=== PATIENT | male | born 2005 | race Caucasian/White ===

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

== ENCOUNTER 2025-03-13 01:18 | Emergency (ER) | payer OTHER, SELFPAY ==
--- OUTSIDE RECORDS SUMMARY | 2025-03-13 01:20 | XMS_ITS | Clinical Summary ---
Author Organization [facility] Address [address] [place] [address], [facility] [address] [place] [address] Phone Care Team Providers Care Carton Filling Machine Operator Name Role Phone Pcp, No Primary Care Provider Unavailabl e Allergies No known active allergies Medications escitalopram (Lexapro) 20 MG tablet Take 20 mg by mouth 1 (one) time each day. 10/08/2022 Active Active Problems No known active problems Social History Tobacco Use Types Packs/Day Years Used Date Smoking Tobacco: Never Smokeless Tobacco: Never Tobacco Cessation:Counseling Given: Not Answered Alcohol Use Standard Drinks/Week Comments Yes 0 (1 standard drink = 0.6 oz pur e alcohol) socially Sex and Gender Information Value Date Recorded Sex Assigned at Not on file Legal Sex Male 4:57 PM EST Gender Identity Not on file Sexual Orientation Not on file Last Filed Vital Signs Vital Sign Reading Time Taken Comments Blood Pressure 113/67 10/16/2022 5:32 PM EST Pulse 62 10/16/2022 5:32 PM EST Temperature 37 C (98.6 F) 10/16/2022 5:32 PM EST Respiratory Rate 16 10/16/2022 5:32 PM EST Oxygen Saturation 98% 10/16/2022 5:32 PM EST Inhaled Oxygen Concentration - - Weight 76.7 kg (169 lb) 10/16/2022 5:32 PM EST Height 190.5 cm (6' 3) 10/16/2022 5:32 PM EST Body Mass Index 21.12 10/16/2022 5:32 PM EST Plan of Treatment Health Maintenance Due Date Last Done Comments Annual Preventative Visit (APV) 2003 HPV Vaccines (1 - Male 3-dose series) 2018 Meningococcal B Vaccine (1 of 2 - Standard) 2019 Influenza Vaccine (Season Ended) 2025 Insurance [facility] Care Teams Carton Filling Machine Operator Relationship Specialty Start Date End Date NO PCP PCP - General 10/16/22
--- OUTSIDE RECORDS SUMMARY | 2025-03-13 01:20 | XMS_ITS | Clinical Summary ---
Author Organization [facility] Address [address] [place] [address] Care Team Providers Care Global Clinical Leader Name Role Phone Pediatrics, [facility] Primary Care Provider Allergies No known active allergies Medications clonazePAM (KLONOPIN) 1 MG tablet Take 1 mg by mouth as needed 01/29/2021 Active escitalopram oxalate (LEXAPRO) 20 MG tablet Take 20 mg by mouth once daily 09/15/2021 Active amantadine HCL (SYMMETREL) 100 mg tabletIndicatio ns:Cognitive changes Take 0.5 tablets (50 mg total) by mouth 2 (two) times daily 30 tablet 1 09/22/2021 Active Active Problems Problem Noted Date Diagnosed Date Allergic rhinitis 08/15/2017 Overview (09/15/2021): Last Assessment & Plan: Improve medicine compliance Social History Tobacco Use Types Packs/Day Years Used Date Smoking Tobacco: Never Smokeless Tobacco: Never AUDIT-C Answer Date Recorded Q1: How often do you have a drink containing alc ohol? Monthly or less 09/15/2021 Q2: How many drinks containi ng alcohol do you have on a typical day when you are drinking? 1 or 2 09/15/2021 Q3: How often do you have si x or more drinks on one occasion? Never 09/15/2021 Overall Financial Resource Strain (CARDIA) Answe r Date Recorded How hard is it for you to pa y for the very basics like food, housing, medical care, and heating? Not hard at all 09/15/2021 PHQ-2 Answer Date Recorded (OBSOLETE) Total Prescreening Score 5 09/15/2021 [facility] - Occupational Stress Questionnaire Answer Date Recorded Do you feel stress - tense, restless, nervous, or anxious, or unable to sleep at night because your mind is troubled all the time - these days? Rather much 09/15/2021 Exercise Vital Sign Answer Date Recorde d On average, how many days pe r week do you engage in moderate to strenuous exercise (like a brisk walk)? 4 days 09/15/2021 On average, how many minutes do you engage in exercise at this level? 90 min 09/15/2021 Hunger Vital Sign Answer Date Recorded Within the past 12 months, y ou worried that your food would run out before you got the money to buy more. Never true 09/15/20 21 Within the past 12 months, t he food you bought just didn't last and you didn't have money to get more. Never true 09/15/2021 PRAPARE - Transportation Answer Date Re corded In the past 12 months, has l ack of transportation kept you from medical appointments or from getting medications? No 08/19 In the past 12 months, has l ack of transportation kept you from meetings, work, or from getting things needed for daily living? No 09/15/2021 PHQ-9 Answer Date Recorded (OBSOLETE) PHQ-9 Total Score= 5 Interpersonal Safety Answer Date Record ed Is Anyone Hurting/Threatening You or Making You Feel Afraid? No 09/15/2021 Is Anyone Hurting/Threatening You or Making You Feel Afraid? No 09/15/2021 Sex and Gender Information Value Date Recorded Sex Assigned at Not on file Legal Sex Male 11:11 AM EDT Gender Identity Not on file Sexual Orientation Not on file Last Filed Vital Signs Vital Sign Reading Time Taken Comments Blood Pressure 118/64 08/15/2018 2:01 PM EDT Pulse 72 08/15/2018 2:01 PM EDT Temperature 36.7 C (98 F) 10/08/2021 7:49 AM EST Respiratory Rate - - Oxygen Saturation - - Inhaled Oxygen Concentration - - Weight 81.2 kg (179 lb) 10/08/2021 7:49 AM EST Height 189.2 cm (6' 2.5) 10/08/2021 7:49 AM EST Body Mass Index 22.67 10/08/2021 7:49 AM EST Plan of Treatment Health Maintenance Due Date Last Done Comments HIV Screen 2003 Hepatitis C Screen 2003 Lipid Panel 2003 Annual Physical/Well Child Check 06/18/2006 Varicella Vaccines (1 of 2 - 13+ 2-dose series) 2016 HPV Vaccines (1 - Male 3-dos e series) 2018 Meningococcal B Vaccine (1 o f 2 - Standard) 2019 Adult Tetanus (Td And Tdap) 2021 Depression Screening 09/15/2022 09/15/2021, 09/15/2021 COVID-19 Vaccine ( - 2023-2 5 season) 2024 Influenza Vaccine (Season Ended) 2025 Hepatitis A Vaccines Aged Out No long er eligible based on patient's age to complete this topic Hib Vaccines Aged Out No longer eligi ble based on patient's age to complete this topic Meningococcal ACWY Vaccine Aged Out N o longer eligible based on patient's age to complete this topic Pneumococcal Vaccine Aged Out No long er eligible based on patient's age to complete this topic Goals Goal Patient Goal Type Associated Problems Recent Progress Patient-Stated? Author Follow my doctor's care plan Lifestyle On track(09/16/20 21 8:33 AM EST) No Giancarlo Barahona ATC Care Teams Global Clinical Leader Relationship Specialty Start Date End Date [facility] [address] [place] [address] PCP - General Pediatrics 08/09/18
--- OUTSIDE RECORDS SUMMARY | 2025-03-13 01:20 | XMS_ITS | Clinical Summary ---
Author Organization [facility] Address [address] [place] [id number] Care Team Providers Care Clay Worker Name Role Phone Ziggy Dale MD Primary Care Provi esau Indio Floyd MD Unavailable [phone] Source Comments In the event that these patient records contain information protected by 42 CFRpart 2 (i.e., would identify the patient as a substance abuser and was obtainedby a federally assisted substance abuse program to diagnose, refer fortreatment or treat the patient for substance abuse), please be advised of thefollowing: This information has been disclosed to you from records protected by Federalconfidentiality rules (42 CFR part 2). The Federal rules prohibit you frommaking any further disclosure of this information unless further disclosure isexpressly permitted by the written consent of the person to whom it pertains oras otherwise permitted by 42 CFR part 2. A general authorization for therelea se of medical or other information is NOT sufficient for this purpose.The Federal rules restrict any use of the information to criminally investigateor prosecute any alcohol or drug abuse patient. expressly permitted by the written consent of the person to whom it pertains or as otherwise permitted by 42 CFR part 2. A general authorization for the release of medical or other information is NOT sufficient for this purpose. The Federal rules restrict any use of the information to criminally investigate or prosecute any alcohol or drug abuse patient.[facility] Allergies No known active allergies Medications escitalopram oxalate (LEXAPRO) 20 MG tablet Take 1 tablet (20 mg total) by mouth daily. Active rizatriptan (MAXALT-REQUIREMENTS ANALYST) 10 MG disintegrating tablet Take 1 tablet (10 mg total) by mouth daily as needed. Active Active Problems Problem Noted Date Diagnosed Date Allergic rhinitis 08/15/2017 Assessment & Plan (03/08/2018 8:24 PM EDT): Improve medicine compliance Assessment & Plan (09/10/2017 9:32 AM EST): BID dymista, consider IT if persists/worsens Assessment & Plan (08/15/2017 10:57 PM EDT): Allergy skin testing recommended. Risks, benefits and alternative treatment discussed with the patient. All questions answered and patient agrees to proceed. Skin testing educational information given to the patient. Sinusitis 10/08/2014 Assessment & Plan (03/08/2018 8:24 PM EDT): Nice response to abx/prednisone Assessment & Plan (11/08/2017 2:22 PM EST): Acute URI exacerbation Start with decongestants and plan abx/pred if not improved at 1 week chris Assessment & Plan (09/10/2017 9:31 AM EST): CT clear after max treatment COnt allergy mgmt Assessment & Plan (08/15/2017 10:57 PM EDT): Hx CRS/limited FESS - worsening disease Recheck CT after max therapy Assessment & Plan (08/17/2015 2:41 PM EDT): Doing okay Recommend daily Rx for underlying AR to decrease acute excarbations Assessment & Plan (03/28/2015 10:10 PM EDT): Good response to most recent Rx Recheck 4 mo Cont AR regimen Assessment & Plan (02/07/2015 10:48 PM EDT): Pt with acute exacerbation of nasal d/c and sinus pressure in the past few weeks despite use of nasal abx/steroid irrigation Course of Po abx and steroids, will recheck after treatment Assessment & Plan (10/08/2014 9:52 PM EST): Improved with nasal steroids/rinses Continue regimen, recheck 4 mo Family History Relation Name Status Comments Father Alive Mother Alive Social History Tobacco Use Types Packs/Day Years Used Date Smoking Tobacco: Never Smokeless Tobacco: Never Tobacco Cessation:Counseling Given: Not Answered Alcohol Use Standard Drinks/Week Comments No 0 (1 standard drink = 0.6 oz pur e alcohol) Substance Use Answer Date Recorded In the past year, how often have you used prescription drugs for non-medical reasons? Not on file 08/26/2024 In the past year, how often have you used illega l drugs? Not on file 08/26/2024 In the past year, have you u sed any substance for non-medical reasons? No 08/26/2024 Sex and Gender Information Value Date Recorded Sex Assigned at Not on file Legal Sex Male 12:57 AM EST Gender Identity Not on file Sexual Orientation Not on file Last Filed Vital Signs Vital Sign Reading Time Taken Comments Blood Pressure 136/78 05/25/2023 9:51 PM EDT Pulse 85 05/25/2023 9:51 PM EDT Temperature 36.2 C (97.2 F) 06/11/2023 10:49 AM EDT Respiratory Rate 16 05/25/2023 9:51 PM EDT Oxygen Saturation 100% 05/25/2023 9:51 PM EDT Inhaled Oxygen Concentration - - Weight 80.1 kg (176 lb 9.6 oz) 06/11/2023 10:49 AM EDT Height 191.8 cm (6' 3.5) 06/11/2023 10:49 AM ED T Body Mass Index 21.78 06/11/2023 10:49 AM EDT Plan of Treatment Health Maintenance Due Date Last Done Comments Hepatitis C Screen 2021 COVID-19 Vaccine ( season) 2024 10/16/2022, 10/06/2021, 03/03/2021, Additional history exists DTaP/Tdap/Td Vaccines (7 - Td or Tdap) 06/13/2025 06/13/2015, 09/19/2008, 02/16/2005, Additional history exists Influenza Vaccine (Season Ended) 2025 11/11/2021, 09/04/2019, 07/25/2018, Additional history exists Pneumococcal Vaccine 0-49 Aged Out 2003, 05/20/2004, 2003, Additional history exists No longer eligible based on patient's age to complete this topic HPV Vaccines Completed 07/25/2018, 07/08/2017 Meningococcal B Vaccines Completed 10/02/2020, 08/18 Insurance ) ) Care Teams Clay Worker Relationship Specialty Start Date End Date Ziggy Dale MD [address] [place] [id number] PCP - General Pediatrics 08/27/17 Indio Floyd MD [address] [place] [id number] Otolaryngology 08/27/17
--- OUTSIDE RECORDS SUMMARY | 2025-03-13 01:20 | XMS_ITS | Referral Summary ---
Author Organization [facility] Address [address] [place] [address], [address] [address] Phone Care Team Providers Care Dental Biller Name Role Phone Pcp, No Primary Care [...] 10/16/2022 5:32 PM EST Plan of Treatment Not on file Insurance [facility] Care Teams Dental Biller Relationship Specialty Start Date End Date NO PCP PCP - General 10/16/22
--- OUTSIDE RECORDS SUMMARY | 2025-03-13 01:20 | XMS_ITS | Clinical Summary ---
Author Organization [facility] Address [address] [place] [address] Care Team Providers Care Christmas Tree Grower Name Role Phone Pediatrics, [facility] Primary Care Provider Allergies No known active allergies Medications No known medications Active Problems Problem Noted Date Diagnosed Date Sinusitis 07/28/2014 Assessment & Plan (08/23/2014 8:44 PM EST): Overall improved with nebulized steroids and abx Recent headache appears more neuro that sinus, may consider referral Cont meds Assessment & Plan (07/28/2014 8:39 AM EDT): Significant refractory disease Plan immunology eval, top nebs F/u 6 weeks May need revision FESS Social History Tobacco Use Types Packs/Day Years Used Date Smoking Tobacco: Never Smokeless Tobacco: Never Alcohol Use Standard Drinks/Week Comments No 0 (1 standard drink = 0.6 oz pur e alcohol) Sex and Gender Information Value Date Recorded Sex Assigned at Not on file Legal Sex Male 11:56 PM EDT Gender Identity Not on file Sexual Orientation Not on file Last Filed Vital Signs Vital Sign Reading Time Taken Comments Blood Pressure 111/62 10/31/2021 2:11 AM EST Pulse 42 10/31/2021 2:11 AM EST Temperature 36.9 C (98.5 F) 10/30/2021 9:00 PM EST Respiratory Rate 18 10/30/2021 9:00 PM EST Oxygen Saturation 100% 10/31/2021 2:11 AM EST Inhaled Oxygen Concentration - - Weight 81.6 kg (180 lb) 10/30/2021 9:00 PM EST Height 188 cm (6' 2) 10/30/2021 9:00 PM EST Body Mass Index 23.11 10/30/2021 9:00 PM EST Plan of Treatment Health Maintenance Due Date Last Done Comments HIV 2003 Hepatitis C antibody 2003 Wellness Visit 2009 Influenza vaccines (#1) 2024 09/04/20 19, 07/25/2018, 07/08/2017, Additional history exists DTaP/Tdap/Td vaccines (7 - Td or Tdap) 06/13/2025 06/13/2015, 09/19/2008, 02/16/2005, Additional history exists Hepatitis B vaccines Completed 08/25/2004, 2003, 2003 Hib vaccines Completed 08/25/2004, 12/16, 2003 Pneumococcal vaccines 0-49 yrs Aged Out 08/25/2004, 05/20/2004, 2003, Additional history exists No longer eligible based on patient's age to complete this topic Polio vaccines Completed 09/19/2008, 11/2004, 2003, Additional history exists Hepatitis A vaccines Completed 09/24/2009, 09/19/20 08 HPV vaccines Completed 07/25/2018, 07/08/2017 Meningococcal ACWY vaccines Completed 09/04/2019, 0 06/13/2015 [place] [address] [facility] CHOICE/CHOICE PLUS [facility] CHOICE/CHOICE PLUS Care Teams Christmas Tree Grower Relationship Specialty [facility] [address] [place] [address] PCP - General 07/18/17
[2025-03-13 01:23] VITALS: BP 132/101; PULSE 102; RESP 18; TEMP 36.8; O2SAT 99; BMI 25.6
--- NOTE | 2025-03-13 01:37 | ED_ITS ---
HPI - General Adult General Chief complaint: Nausea/Vomiting Stated complaint: food poisoning Time Seen by Provider: 03/13/25 01:27 Source: patient Mode of arrival: ambulatory Limitations: no limitations History of Present Illness HPI narrative: 19-year-old male presents the emergency department with 5 hours of nausea and vomiting. No diarrhea. No abdominal pain. No hematemesis, bloody stools or abdominal trauma. No prior history of abdominal surgeries. No shortness of breath, chest pain, musculoskeletal changes or other abnormalities. Has not tried any medications to help with his symptoms. He is trying to drink fluids but vomits them back up. No known illness exposures but does report that he had some questionable [place] food that he thinks may have caused his symptoms. No pertinent travel, no recent antibiotic use. No recreational drugs, no recent alcohol. No history of pancreatitis or other intra-abdominal conditions. Past medical history notable for anxiety. History of Lexapro use, 20 mg once daily, denies other medications. Allergy to dust but no medication allergies. ROS is notable for the GI symptoms only, otherwise denies times 12 systems. Related Data Home Medications ?Medication ?Instructions ?Recorded ?Confirmed escitalopram oxalate 20 mg tablet 20 mg PO DAILY 09/0103/13/25 (Lexapro) guanfacine 1 mg tablet,extended mg PO 11/28/22 release 24 hr hydroxyzine HCl 25 mg tablet mg 11/28/22 rizatriptan 10 mg disintegrating mg 11/28/22 tablet Allergies Allergy/AdvReac Type Severity Reaction Status Date / Time house dust Allergy Mild sneeze Verified 03/13/25 01:25 [facility] Medical History Motor tic disorder ?F95.8 - Other tic disorders (ICD-10) Anxiety ?F41.9 - Anxiety disorder, unspecified (ICD-10) TBI (traumatic brain injury) ?S06.9XAA - Unspecified intracranial injury with loss of consciousness status unknown, initial encounter (ICD-10) Social History Smoking Status: Never smoker Do you use any of these nicotine containing products: None Second hand tobacco smoke exposure: No How often do you have a drink containing alcohol: monthly or less AUDIT-C Alcohol total score: 1 Non-prescribed substance use: denies use Exam Const: Vital Signs, click to edit/add: Vital Signs - 24 hr 03/13/25 01:23 03/13/25 03:02 03/13/25 03:05 Temperature 98.2 F 98.2 F 98.2 F Pulse Rate [Pulse Oximeter] 102 H 85 85 Respiratory Rate 18 18 18 Blood Pressure [Ri ght Upper Arm] 132/101 H 125/74 125/74 Pulse Oximetry 99 99 Oxygen Delivery Me thod Room Air Room Air Documenting provider has reviewed patient's vital signs: yes Common normals: no apparent distress Other: Appears mildly ill. Well developed. Behavior normal. HENMT: Common normals: normocephalic Head and scalp: normocephalic Other: Mucous membranes slightly dry. Normal posterior pharynx. Eye: Common normals: conjunctivae normal General eye: normal appearance of both eyes Conjunctiva: conjunctiva(e) normal Neck & C-Spine: Common normals: full ROM and no lymphadenopathy Resp: Common normals: normal respiratory effort, no use of accessory muscles and clear to auscultation bilaterally Effort & inspection: able to speak in complete sentences Auscultation: clear to auscultation bilaterally Cardio: Common normals: regular rate, regular rhythm, S1 normal heart sound, S2 normal heart sound and no murmurs Rate: regular rate Rhythm: regular rhythm Heart sounds: S1 normal and S2 normal GI: Common normals: Normal to inspection, nondistended, normoactive bowel sounds present, soft to palpation, no hepatosplenomegaly and no masses Palpation: soft and no hepatosplenomegaly Other: Very mild tenderness to epigastric region only. No tenderness to other areas. Back & Pelvis: Common normals: thoracic and lumbar spine normal to inspection Extremity: Common normals: normal to inspection, full ROM and normal capillary refill Psych: Common normals: mental status grossly normal, thought process normal, cooperative, affect normal and speech normal Speech: normal speech Thought process: normal thought process Skin: Common normals: no rashes or lesions noted General skin exam: no rashes or lesions noted Course Course ED Course: 19-year-old male with nausea vomiting suspicious for gastroenteritis. Does not have any abdominal tenderness that would suggest appendicitis, pancreatitis, obstruction, volvulus, internal hernia, inflammatory condition or other dangerous pathology, all considered. Only showing signs of mild dehydration. No hypotension or fever. I recommended 8 mg of oral Zofran, and then after 20 minutes will do a trial of oral fluids. If he tolerates this well, will plan for oral Zofran at home, if he does not tolerate this well, will place peripheral IV and perform additional studies. Reevaluation(s) Time of Reevaluation #1: 03:05 Reevaluation #1: Patient feeling much better after the Zofran. Tolerating liquids with no difficulty. Still feels a little bit of mild epigastric discomfort but no further vomiting. Keeps asking for more more water. Re-examination of the abdomen continues to be benign. Recommend symptomatic treatment and discharged home, rationale discussed. Will give 20 mg of omeprazole p.o. x1 and prescription for Zofran. Counseled to set an alarm and take another dose of Zofran at 8:00 a.m. and then after that he can go to as needed, continuing to push fluids, slowly advance diet. Alarm symptoms reviewed that would warrant repeat ED evaluation. He verbalizes understanding and agreement. Written instructions provided. Vital Signs Vital signs: Initial Vital Signs Temperature 98.2 F 03/13/25 01:23 Temperature Source Temporal Artery Scan 03/13/25 01:23 Pulse Rate 102 H 03/13/25 01:23 Respiratory Rate 18 03/13/25 01:23 Blood Pressure 132/101 H 03/13/25 01:23 Blood Pressure Mean 111 H 03/13/25 01:23 Blood Pressure Position Sitting 03/13/25 01:23 Pulse Oximetry 99 03/13/25 01:23 Oxygen Delivery Method Room Air 03/13/25 01:23 Vital Signs Temperature 98.2 F 03/13/25 01:23 Pulse Rate 102 H 03/13/25 01:23 Respiratory Rate 18 03/13/25 01:23 Blood Pressure 132/101 H 03/13/25 01:23 Pulse Oximetry 99 03/13/25 01:23 Oxygen Delivery Method Room Air 03/13/25 01:23 Temperature 98.2 F 03/13/25 03:05 Pulse Rate 85 03/13/25 03:05 Respiratory Rate 18 03/13/25 03:05 Blood Pressure 125/74 03/13/25 03:05 Pulse Oximetry 99 03/13/25 03:02 Oxygen Delivery Method Room Air 03/13/25 03:02 Medications Administered Medications: Discontinued Medications Generic Name Dose Route Start Last Admin Trade Name Sharee PRN Reason Stop Dose Admin Omeprazole 20 mg 03/13/25 02:53 03/13/25 03:[address] PO 03/13/25 02:54 20 mg ONCE ONE Administration Ondansetron HCl 8 mg 03/13/25 01:36 03/13/25 01:38 Ondansetron Odt 4 Mg Tab PO 03/13/25 01:37 8 mg ONCE ONE Administration Discharge Plan Discharge Clinical Impression: Gastroenteritis Patient Disposition: Home w/ Parent or Adult Condition: Improved Instructions: Gastroenteritis (DC) Additional Instructions: As we discussed, your nausea and vomiting do seem consistent with either a mild case of food poisoning or more likely viral gastroenteritis, also known as the stomach flu. I am glad that the ondansetron has been helpful and that your now holding down fluids. Continue to sip fluids frequently and slowly introduce bland foods throughout today. Home from school today. You should be able to go back to school on Wednesday. I would like for you to set an alarm and take another dose of the anti nausea medicine at 8:00 a.m.. After that, you may continue using 1 pill up to every 6 hours as needed for nausea and vomiting. It is okay to use [id number] Imodium if he developed diarrhea from the illness. It is okay to use Tylenol and/or ibuprofen for body aches, low-grade fever and mild general discomfort. If you have severe abdominal pain, persistent bloody vomit, bloody stools or other were alarming symptoms, please return to the emergency department. Wash her hands frequently as this is typically very contagious. It is safe to continue your typical medications. Activity Level: Activity as Tolerated Discharge Diet: Regular Prescriptions: No Action escitalopram oxalate [Lexapro] 20 mg tablet 20 mg PO DAILY rizatriptan 10 mg tablet,disintegrating Patient Comments: 1 tablet by mouth as needed for migraine, up to 3 doses weekly hydroxyzine HCl 25 mg tablet Patient Comments: 1-2 tablet by mouth every night guanfacine 1 mg tablet extended release 24 hr PO Patient Comments: TAKE 1 TABLET BY MOUTH EVERY NIGHT. INCREASE BY 1 TABLET EVERY WEEK UNTIL TAKING 4 TABLETS NIGHTLY Follow Up/Referrals: Provider,Not a Local [Primary Care Provider, Family Practice] Stand Alone Forms: MyHealth Info Instructions
[2025-03-13] MEDS: ONDANSETRON ODT 4 MG TAB 8 MG PO (01:38)
[2025-03-13] MEDS: OMEPRAZOLE 20 MG CAPSULE DR PO (03:00)
[2025-03-13 03:02] VITALS: BP 125/74; PULSE 85; RESP 18; TEMP 36.8; O2SAT 99
[2025-03-13 03:05] VITALS: BP 125/74; PULSE 85; RESP 18; TEMP 36.8
== END 2025-03-13 03:05 | disposition home or self-care (01) ==
PROVIDERS: Emergency Provider Family Medicine
DX: K52.9 Noninfective gastroenteritis and colitis, unspecified (principal)
CPT/HCPCS: 99283; A9270